=== PATIENT | male | born 1965 | race Caucasian/White ===

== ENCOUNTER 2018-12-15 12:52 | Emergency (ER) | payer MEDICAID ==
[2018-12-15] MEDS ORDERED: ONDANSETRON HCL IV 4 MG/2 ML VIAL IV ONE (13:22)
[2018-12-15] MEDS ORDERED: 0.9 % SODIUM CHLORIDE 1,000 ML BAG IV ONE ×2 (13:22→14:06)
--- NOTE | 2018-12-15 13:25 | Emergency Department Record ---
History of Present Illness - General Chief complaint: Nausea, Vomiting, Diarrhea Stated complaint: N/V/D/ Time Seen by Provider: 12/15/18 13:20 Source: Patient Mode of Arrival: Ambulatory Limitations: No limitations - History of Present Illness Initial comments: The patient is here due to a one day hx of first nausea, then vomiting and diarrhea. He then developed aching cramping AP mainly over the L abdomen. The patient has vomited about 5 times and has had a similar amount of loose stools. There has been no hx of fever, chills, dysuria, trauma, CP, SOB or blood in the stool or vomit. The patient has had a Laparoscopy in the past due to a splenecto my. MD complaint: Abdominal pain, Diarrhea, Nausea, Vomiting Onset/Timin -: Days(s) Description of Vomiting: Watery Description of Diarrhea: Water Associated Abdominal Pain: Yes Location: Diffuse Radiation: Back Severity scale (1-10): 5 Quality: Cramping Improves with: None Worsens with: None Associated Symptoms: Nausea/vomiting - Related Data Home Medications Medication Instructions Recorded Confirmed Last Taken No Home Med [NO HOME MEDS] 12/15/18 12/15/18 Unknown Allergies Allergy/AdvReac Type Severity Reaction Status Date / Time No Known Drug Allergies Allergy Verified 12/15/18 12:58 Travel Screening - Travel/Exposure Within Last 30 Days Have you traveled within the last 30 days?: No Review of Systems Constitutional: Denies: Chills, Fever Eyes: Denies: Eye discharge ENT: Denies: Congestion Respiratory: Denies: Cough, Dyspnea Past Medical History - SOCIAL HISTORY Smoking Status: Current every day smoker Alcohol Use: None Drug Use: None - RESPIRATORY Hx Respiratory Disorders: No - CARDIOVASCULAR Hx Cardio Disorders: No - NEURO Hx Neuro Disorders: No - GI Hx GI Disorders: No - Hx Genitourinary Disorders: No - ENDOCRINE Hx Endocrine Disorders: Yes Hx Diabetes: Yes (type 2) - MUSCULOSKELETAL Hx Musculoskeletal Disorders: No - PSYCH Hx Psych Problems: No - HEMATOLOGY/ONCOLOGY Hx Hematology/Oncology Disorders: No Family Medical History Any Significant Family History?: No Physical Exam - General General Appearance: Alert, Oriented x3, Cooperative, No acute distress - Head Head exam: Atraumatic, Normocephalic, Normal inspection - Eye Eye exam: Normal appearance, PERRL - ENT Throat exam: Normal inspection. negative: Tonsillar erythema, Tonsillar exudate - Neck Neck exam: Normal inspection, Full ROM. negative: Tenderness - Respiratory Respiratory exam: Normal lung sounds bilaterally. negative: Respiratory distress - Cardiovascular Cardiovascular Exam: Regular rate, Normal rhythm, Normal heart sounds - GI/Abdominal GI/Abdominal exam: Soft, Normal bowel sounds, Tenderness (There is mild LLQ tenderness.). negative: Distended, Rebound, Rigid - Extremities Extremities exam: Normal inspection, Full ROM, Normal capillary refill. negative: Tenderness - Neurological Neurological exam: Alert. negative: Motor sensory deficit Course Vital Signs 12/15/18 13:03 Temperature 98.6 F Pulse Rate [ 120 H Pulse Ox Probe] Respiratory 24 Rate Blood Pressure 122/84 [Left Arm] Pulse Ox 98 - Reevaluation(s) Reevaluation #1: The patient is doing better at this time. His AP is improving but he is having more of his chronic back pain. The patient states the back pain is not a new issue for him. 12/15/18 14:39 Reevaluation #2: The patient is doing better at this time. His pain is improving and he denies any new issues. I did discuss the lab work with him and he states he has had s imilar episodes in the past just like this. I also explained that he will need to be transferred to a larger hospital and he would like to go to [facility]. I then did discuss the case with Dr. Spears in the ER and she did accept the patient in an ER to ER transfer. 12/15/18 15:08 Reevaluation #3: The patient's last BP just prior to transfer was low at 90/65. His HR was 105 and he denied any new pain. Due to that fact we did start a 2nd IV of normal saline and will run that in to increase the patient's blood pressure. 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 Accepting Physician: . Time Discussed w/Accepting Physician: 15:10 Condition: (2) Stable Forms: Patient Portal Access Time of Disposition: 15:10 Quality - Quality Measures Quality Measures: N/A - Blood Pressure Screening View Details: Yes Does Patient Have Any of the Following: No Blood Pressure Classification: Normal BP Reading Systolic Measurement: 86 Diastolic Measurement: 43 Screening for High Blood Pressure: < Normal BP, F/U Not Required > [G8783]
[2018-12-15 13:45] LABS: ABSOLUTE NEUTROPHIL COUNT 54.61; HEMATOCRIT 46.8 % (42.0-52.0); MEAN CELL VOLUME 89.5 fl (81-97); MEAN CORPUSCULAR HEMOGLOBIN 30.6 pg (27-33); MEAN CORPUSCULAR HGB CONC 34.2 g/dl (32-36); MEAN PLATELET VOLUME 11.3 fl (7.4-10.4); PLATELET COUNT 192 K/uL (130-400); RED BLOOD COUNT 5.23 M/uL (4.40-5.70); RED CELL DISTRIBUTION WIDTH 13.9 % (11.5-14.5)
[2018-12-15 13:52] LABS: URINE APPEARANCE CLEAR; URINE BILIRUBIN NEGATIVE (NEGATIVE); URINE BLOOD SMALL (NEGATIVE); URINE COLOR YELLOW; URINE KETONE NEGATIVE (NEGATIVE); URINE LEUKOCYTE ESTERASE NEGATIVE (NEGATIVE); URINE NITRITE POSITIVE (NEGATIVE); URINE PROTEIN NEGATIVE (NEGATIVE); URINE UROBILINOGEN 0.2 E.U./dL (0.20 - 1.00)
[2018-12-15 13:55] LABS: URINE GLUCOSE (UA) >=1000 mg/dL (NEGATIVE)
[2018-12-15 13:56] LABS: URINE BACTERIA FEW; URINE EPITHELIAL CELLS NONE SEEN (FEW); URINE WBC NONE SEEN (0-2/hpf)
[2018-12-15 13:58] LABS: CREATININE 1.4 mg/dL (0.7-1.2)
[2018-12-15 13:59] LABS: TOTAL PROTEIN 6.1 g/dL (6.6-8.7)
[2018-12-15 14:04] LABS: ALBUMIN 3.1 g/dL (4.0-5.0); BILIRUBIN,DIRECT 0.4 mg/dL (0-0.3)
[2018-12-15 14:09] LABS: WHITE BLOOD COUNT W/O DIFF 55.6 K/uL (4.2-12.2)
[2018-12-15 14:10] LABS: PLATELET ESTIMATE NORMAL (NORMAL); TOXIC GRANULATION 1+
[2018-12-15] MEDS ORDERED: POTASSIUM CHL 20MEQ IN 1L NS 20 MEQ/1,000 ML BAG IV ONE (14:22)
[2018-12-15] MEDS ORDERED: HYDROMORPHONE HCL 2 MG/ML VIAL IVP ONE (14:26)
[2018-12-15] MEDS ORDERED: CEFTRIAXONE 1GM/50ML BAG 1 GM/50 ML BAG IVPB ONE (14:57)
[2018-12-15 14:59] LABS: ACETONE,SERUM SMALL (NEGATIVE)
[2018-12-15] MEDS ORDERED: HUMULIN R 100 UNIT/ML VIAL SC ONE (15:10)
[2018-12-15] MEDS ORDERED: HUMULIN R 100 UNIT/ML VIAL IV ONE (15:10)
--- NOTE | 2018-12-15 16:33 | Emergency Department Record ---
History of Present Illness - General Chief complaint: Nausea, Vomiting, Diarrhea Stated complaint: N/V/D/ Time Seen by Provider: 12/15/18 13:20 Source: Patient Mode of Arrival: Ambulatory Limitations: No limitations - History of Present Illness Initial comments: The patient's history taking has been difficult due to the patient being a very poor historian. He also has a hx of diabetes and is supposed to be on medicine for his blood sugar but has not been taking it and does have a hx of being noncompliant. MD complaint: Abdominal pain, Diarrhea, Nausea, Vomiting Onset/Timin -: Days(s) Description of Vomiting: Watery Description of Diarrhea: Water Associated Abdominal Pain: Yes Location: Diffuse Radiation: Back Severity scale (1-10): 5 Quality: Cramping Improves with: None Worsens with: None Associated Symptoms: Nausea/vomiting - Related Data Home Medications Medication Instructions Recorded Confirmed Last Taken No Home Med [NO HOME MEDS] 12/15/18 12/15/18 Unknown Allergies Allergy/AdvReac Type Severity Reaction Status Date / Time No Known Drug Allergies Allergy Verified 12/15/18 12:58 Travel Screening - Travel/Exposure Within Last 30 Days Have you traveled within the last 30 days?: No Review of Systems Constitutional: Denies: Chills, Fever Eyes: Denies: Eye discharge ENT: Denies: Congestion Respiratory: Denies: Cough, Dyspnea Cardiovascular: Denies: Arrhythmia, Chest pain Endocrine: Reports: Fatigue Gastrointestinal: Reports: Abdominal pain, Diarrhea, Nausea, Vomiting Genitourinary: Denies: Dysuria Musculoskeletal: Reports: Back pain (chronic.). Denies: Arthralgia Past Medical History - SOCIAL HISTORY Smoking Status: Current every day smoker Alcohol Use: None Drug Use: None - RESPIRATORY Hx Respiratory Disorders: No - CARDIOVASCULAR Hx Cardio Disorders: No - NEURO Hx Neuro Disorders: No - GI Hx GI Disorders: No - Hx Genitourinary Disorders: No - ENDOCRINE Hx Endocrine Disorders: Yes Hx Diabetes: Yes (type 2) - MUSCULOSKELETAL Hx Musculoskeletal Disorders: No - PSYCH Hx Psych Problems: No - HEMATOLOGY/ONCOLOGY Hx Hematology/Oncology Disorders: No Family Medical History Any Significant Family History?: No Physical Exam - General Limitations: No limitations Course Vital Signs 12/15/18 12/15/18 12/15/18 13:03 14:38 16:13 Temperature 98.6 F 98.9 F Pulse Rate [ 120 H 110 H 107 H Pulse Ox Probe] Respiratory 24 24 20 Rate Blood Pressure 122/84 120/49 86/43 [Left Arm] Pulse Ox 98 96 93 L Medical Decision Making - Lab Data Result diagrams: 12/15/18 13:35 12/15/18 13:35 Lab Results 12/15/18 12/15/18 12/15/18 Range/Units 13:35 13:35 13:35 WBC 55.6 H* (4.2-12.2) K/uL RBC 5.23 (4.40-5.70) M/uL Hgb 16.0 (14.0-18.0) gm/dl Hct 46.8 (42.0-52.0) % MCV 89.5 (81-97) fl MCH 30.6 (27-33) pg MCHC 34.2 (32-36) g/dl RDW 13.9 (11.5-14.5) % Plt Count 192 (130-400) K/uL MPV 11.3 H (7.4-10.4) fl Neutrophils % 71.0 (47-80) % Band Neutrophils % 23.0 H (0-5) % Eosinophils % Not Reportable Basophils % Not Reportable Absolute Neutrophils 54.61 Lymphocytes 2.0 L (16-45) % Monocytes 0.0 (0-9) % Metamyelocytes 4.0 % Toxic Granulation 1+ Platelet Estimate Normal (NORMAL) RBC Morphology Normal VBG pH (7.33-7.43) Sodium 126 L (136-145) mmol/L Potassium 3.7 (3.4-4.5) mmol/L Chloride 87 L (98-107) mmol/L Carbon Dioxide 11.0 L (22-29) mmol/L Anion Gap 28.0 H (7-16) BUN 12 (6-20) mg/dL Creatinine 1.4 H (0.7-1.2) mg/dL Estimated GFR 57 mL/min Random Glucose 525 H* (74-109) mg/dL Lactic Acid Calcium 8.3 L (8.6-10.0) mg/dL Direct Bilirubin 0.4 H (0-0.3) mg/dL AST 19 (10.0-50.0) U/L ALT 15 (<41) U/L Alkaline Phosphatase 189 H (40-129) U/L C-Reactive Protein (<0.5) mg/dL Total Protein 6.1 L (6.6-8.7) g/dL Albumin 3.1 L (4.0-5.0) g/dL Lipase 20 (13-60) U/L Urine Color Yellow Urine Appearance Clear Urine pH 5.5 (5.0-8.0) Ur Specific [place] 1.020 (1.002-1.030) Urine Protein Negative (NEGATIVE) Urine Glucose (UA) >=1000 mg/dl H (NEGATIVE) Urine Ketones Negative (NEGATIVE) Urine Blood Small H (NEGATIVE) Urine Nitrite Positive H (NEGATIVE) Urine Bilirubin Negative (NEGATIVE) Urine Urobilinogen 0.2 (0.20 - 1.00) E.U./dL Ur Leukocyte Esterase Negative (NEGATIVE) Urine RBC 7 - 10 (NONE SEEN) Urine WBC None seen (0-2/hpf) Ur Epithelial Cells None seen (FEW) Urine Bacteria Few Acetone, Qual (NEGATIVE) 12/15/18 12/15/18 12/15/18 Range/Units 14:30 14:38 14:51 WBC (4.2-12.2) K/uL RBC (4.40-5.70) M/uL Hgb (14.0-18.0) gm/dl Hct (42.0-52.0) % MCV (81-97) fl MCH (27-33) pg MCHC (32-36) g/dl RDW (11.5-14.5) % Plt Count (130-400) K/uL MPV (7.4-10.4) fl Neutrophils % (47-80) % Band Neutrophils % (0-5) % Eosinophils % Basophils % Absolute Neutrophils Lymphocytes (16-45) % Monocytes (0-9) % Metamyelocytes % Toxic Granulation Platelet Estimate (NORMAL) RBC Morphology VBG pH 7.30 L (7.33-7.43) Sodium (136-145) mmol/L Potassium (3.4-4.5) mmol/L Chloride (98-107) mmol/L Carbon Dioxide (22-29) mmol/L Anion Gap (7-16) BUN (6-20) mg/dL Creatinine (0.7-1.2) mg/dL Estimated GFR mL/min Random Glucose (74-109) mg/dL Lactic Acid Cancelled 12.9 H Calcium (8.6-10.0) mg/dL Direct Bilirubin (0-0.3) mg/dL AST (10.0-50.0) U/L ALT (<41) U/L Alkaline Phosphatase (40-129) U/L C-Reactive Protein 9.76 H (<0.5) mg/dL Total Protein (6.6-8.7) g/dL Albumin (4.0-5.0) g/dL Lipase (13-60) U/L Urine Color Urine Appearance Urine pH (5.0-8.0) Ur Specific [place] (1.002-1.030) Urine Protein (NEGATIVE) Urine Glucose (UA) (NEGATIVE) Urine Ketones (NEGATIVE) Urine Blood (NEGATIVE) Urine Nitrite (NEGATIVE) Urine Bilirubin (NEGATIVE) Urine Urobilinogen (0.20 - 1.00) E.U./dL Ur Leukocyte Esterase (NEGATIVE) Urine RBC (NONE SEEN) Urine WBC (0-2/hpf) Ur Epithelial Cells (FEW) Urine Bacteria Acetone, Qual Small (NEGATIVE) Disposition Clinical Impression: Dehydration DKA, type 2 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
[2018-12-15 18:17] LABS: BILIRUBIN,TOTAL 1.1 mg/dL (0.2-1.0)
--- NOTE | 2018-12-16 21:44 | CT SCAN REPORT ---
EXAM: CT SCAN ABDOMEN/PELVIS WO CONTRAST HISTORY: ABDOMINAL PAIN WITH NAUSEA, VOMITING, DIARRHEA, AND DISTENTION FOR ONE DAY. REMOTE SPLENECTOMY. ELEVATED SERUM WHITE BLOOD CELL COUNT. TECHNIQUE: Thin-collimation helical CT examination of the abdomen and pelvis is performed without oral or intravenous contrast administration. Lack of oral and IV contrast utilization limits evaluation of the bowel and solid viscera, respectively. COMPARISON: None. FINDINGS: Evaluation of the lung bases is limited by motion artifact. There is mild dependent atelectasis in each lung base. No pleural or pericardial effusion. The heart is not enlarged. No focal abnormality is noted within the liver, pancreas, nor adrenal glands. The spleen is surgically absent, though there are multiple nodular soft tissue density structures scattered within the left abdomen. That in the posterior left subdiaphragmatic region measures 1.7 x 2.2 cm. In the left mid to upper abdomen is a structure measuring 3.3 x 3.7 cm and in the left lower quadrant is a structure measuring 3.1 x 3.6 cm. A few additional small nodules are scattered throughout the abdominal cavity, one of which is noted adjacent to the anterior inferior margin of the right liver lobe measuring 14 x 11 mm. There is a questionable similar nodule causing contour deformity along the posterior margin of the mid right liver lobe measuring 19 mm in diameter. Another is located in the right lower quadrant measuring 1.7 x 2.4 cm. No calcified gallstone is seen. Gallbladder sludge is possible. No biliary ductal dilatation. There are few nonenlarged to mildly enlarged gastrohepatic ligament and periportal lymph nodes. These are nonspecific. Otherwise, there is no evidence of intraabdominal nor retroperitoneal lymphadenopathy. No pelvic mass, lymphadenopathy, or free pelvic fluid. There is coarse calcification within the central prostate gland. The prostate gland is at the upper limits of normal in size. No intrinsic urinary bladder abnormality. No gross bowel dilatation nor bowel wall thickening. The appendix is not visualized. No nephrolithiasis nor obstructive uropathy. There is perinephric fat stranding bilaterally, likely chronic, though an acute inflammatory process would be difficult to exclude. Correlation with urinalysis is recommended. No lytic or blastic bone lesion. Mild levoconvex curvature of the lumbar spine is present. Old healed fracture deformity of the right iliac bone is noted extending down to the level of the acetabulum. Moderate to advanced degenerative changes of the right hip. Mild degenerative changes of the left hip. IMPRESSION: 1. STATUS POST SPLENECTOMY. THERE ARE MULTIPLE SOFT TISSUE DENSITY STRUCTURES SCATTERED THROUGHOUT THE ABDOMEN WITH THE LARGEST MEASURING APPROXIMATELY 3.7 CM IN MAXIMUM DIAMETER. THESE LIKELY RELATE TO SPLENOSIS/ACCESSORY SPLEENS RATHER THAN A NEOPLASTIC PROCESS, SUCH ADENOPATHY. IF CLINICALLY WARRANTED, SPLENOSIS COULD BE PROVEN WITH NUCLEAR MEDICINE LIVER/SPLEEN SCAN (SULFUR COLLOID). 2. BILATERAL PERINEPHRIC FAT STRANDING IS LIKELY CHRONIC, THOUGH AN ACTIVE INFLAMMATORY PROCESS CANNOT BE EXCLUDED. CORRELATION WITH URINALYSIS IS RECOMMENDED. 3. NOT MENTIONED ABOVE IS PROBABLE MILD DIFFUSE HEPATIC STEATOSIS. 4. NOT MENTIONED ABOVE IS APPARENT MILD WALL THICKENING OF THE DISTAL COLON AND RECTUM, LIKELY DUE TO INCOMPLETE DISTENTION RATHER THAN AN INFLAMMATORY PROCESS. 5. BORDERLINE TO MILDLY ENLARGED GASTROHEPATIC LIGAMENT AND PERIPORTAL LYMPH NODES ARE NONSPECIFIC BUT LIKELY REACTIVE/INFLAMMATORY RATHER THAN NEOPLASTIC. JOB NUMBER: [id number] and [id number] [facility]
== END 2018-12-15 17:00 | disposition short-term general hospital (02) ==
LOC: ER 12:52
DX: E11.10 Type 2 diabetes mellitus with ketoacidosis without coma (principal); E86.0 Dehydration; R11.2 Nausea with vomiting, unspecified; R19.7 Diarrhea, unspecified; F17.210 Nicotine dependence, cigarettes, uncomplicated
CPT/HCPCS: 74176; 80048; 80076; 81001; 82009; 82800; 83605; 83690; 85027; 86140; 96365; 96366; 96375; 99285; J0696; J2405; J7030